=== PATIENT | female | born 1935 | race Caucasian/White ===

== ENCOUNTER → 2017-11-04 | Outpatient (CLI) | payer MEDICARE, OTHER ==
[~2017-11-04] MED LIST: AMI10 PO; AMLO-1 PO; ASCO-201 PO; ATEN-1 PO; CALC500T76 PO; CHOL200023 PO; EZE10 PO; FISH OIL 1,2001 CAP PO
[2017-11-04 09:40] LABS: PLATELET COUNT, AUTOMATED 286 K/uL (150-450)
== END ==
LOC: LAB 09:21
PROVIDERS: ATTEND Nurse Practitioner Family
DX: I10 Essential (primary) hypertension (principal); Z95.1 Presence of aortocoronary bypass graft; E87.5 Hyperkalemia; E16.2 Hypoglycemia, unspecified; G47.33 Obstructive sleep apnea (adult) (pediatric); R53.83 Other fatigue; E78.00 Pure hypercholesterolemia, unspecified; E55.9 Vitamin D deficiency, unspecified
CPT/HCPCS: 36415; 82040; 82247; 82306; 82310; 82374; 82435; 82465; 82565; 82947; 83036; 83718; 84075; 84132; 84155; 84295; 84443; 84450; 84460; 84478; 84520; 85025

== ENCOUNTER → 2017-11-11 | Outpatient (CLI) | payer MEDICARE, OTHER ==
--- NOTE | 2017-11-11 13:02 | RADIOLOGY IMAGING REPORT ---
FACILITY: [facility] PATIENT NAME: Bibiana Bhat : 1935 MR: [id number] V: [id number] EXAM DATE: ORDERING PHYSICIAN: AUSTIN GEORGES TECHNOLOGIST: Location: [facility] [place] Patient: Bibiana Bhat : 1935 Visit/Account:[id number] Date of Sevice: 11/11/[address] scan without contrast COMPARISONS: None ADDITIONAL PERTINENT HISTORY: Short-term memory loss and dizziness TECHNIQUE: Multiple axial images were obtained from the skull base to the vertex without IV contrast . One of the following dose optimization techniques was utilized in the performance of this exam: Aut omated exposure control; adjustment of the mA and/or kV according to the patient's size; or use of an iterative reconstruction technique. Specific details can be referenced in the facility's radiology CT exam operational policy. FINDINGS: Midline shift: Negative Ventricles: Negative Brain parenchyma: Patchy hypoattenuation within the periventricular and subcortical white matter, no nspecific but likely representing small vessel ischemic change on a chronic basis. Extra-axial spaces: Mild cerebral atrophy. Calcified extra-axial lesion projecting over the lateral aspect of the right cerebellar hemisphere measuring 2.1 cm compatible with a calcified meningioma. No significant mass effect related to this finding. Intracranial vasculature: Cavernous internal carotid artery calcifications. Otherwise negative Osseous structures: Negative Paranasal sinuses and mastoid air cells: Negative Surrounding soft tissues and orbits: Negative IMPRESSION: 1. Calcified meningioma projecting over the lateral aspect of the right cerebellar hemisphere. 2. Age related changes as described above. 3. No evidence of acute intracranial pathology. Report Dictated By: Ervin Landaverde MD at 11/11/2017 12:54 PM Report E-Signed By: Ervin Landaverde MD at 11/11/2017 12:57 PM WSN:[id number]
== END ==
LOC: CT 12:00
PROVIDERS: ATTEND Nurse Practitioner Family
DX: R41.3 Other amnesia (principal)
CPT/HCPCS: 70450

== ENCOUNTER → 2018-01-29 | Outpatient (CLI) | payer MEDICARE, OTHER ==
[2018-01-29 08:42] LABS: PLATELET COUNT, AUTOMATED 303 K/uL (150-450)
== END ==
LOC: LAB 08:03
PROVIDERS: ATTEND Nurse Practitioner Family
DX: I10 Essential (primary) hypertension (principal); I70.90 Unspecified atherosclerosis; Z95.1 Presence of aortocoronary bypass graft; E87.5 Hyperkalemia; E16.2 Hypoglycemia, unspecified; M81.0 Age-related osteoporosis without current pathological fracture; M62.81 Muscle weakness (generalized); R53.83 Other fatigue; R53.81 Other malaise; Z86.79 Personal history of other diseases of the circulatory system; R73.03 Prediabetes; E78.00 Pure hypercholesterolemia, unspecified; R41.3 Other amnesia; E55.9 Vitamin D deficiency, unspecified
CPT/HCPCS: 36415; 82040; 82247; 82310; 82374; 82435; 82465; 82565; 82607; 82947; 83036; 83718; 84075; 84132; 84155; 84295; 84443; 84450; 84460; 84478; 84520; 85025

== ENCOUNTER → 2018-09-02 | Outpatient (CLI) | payer MEDICARE, OTHER ==
[~2018-09-02] MED LIST changes: +ASPI81TA94 PO; +CYCL1DRO6 OP; +DONE5TAB29 PO; +FLAX1CAP7; +ISOS40TA PO; +LISI5TAB25 PO; +inhaler
[2018-09-02 11:05] LABS: PLATELET COUNT, AUTOMATED 331 K/uL (150-450)
--- NOTE | 2018-09-02 11:13 | RADIOLOGY IMAGING REPORT ---
FACILITY: [facility] [place] PATIENT NAME: Bibiana Bhat : 1935 MR: [id number] V: [id number] EXAM DATE: ORDERING PHYSICIAN: AUSTIN GEORGES TECHNOLOGIST: Location: [facility] [place] Patient: Bibiana Bhat : 1935 Visit/Account:[id number] Date of Sevice: 09/02/2018 MRI left shoulder without contrast Indication: Shoulder pain and limited range of motion after lifting injury. Comparison: None available Technique: Multiplanar, multisequence MRI examination is performed of the left shoulder without contr ast. FINDINGS: There is a type 1 acromion. There are moderate changes of acromioclavicular joint osteoarthritis. The glenohumeral joint is normally aligned. There are underlying changes of osteoarthritis which are mod erate in severity. There is osteophyte production and central glenoid chondrosis. An intermediate siz ed glenohumeral joint effusion is present. Degenerative superior glenoid labral tearing is suspected in the region of the biceps insertion. No para labral cyst is seen. There is thickening and increased T2 signal within and surrounding the anterior and inferior glenohumeral joint capsule. This could be related to a capsular sprain but can also be seen with adhesive capsulitis and frozen shoulder syndr ome. Clinical correlation is necessary. Examination of the rotator cuff demonstrates mild supraspinatus insertional tendinopathy with low-gra de undersurface tearing at the anterior and mid insertion. Minimal infraspinatus insertional tendinop athy is seen anteriorly. No evidence for focal tear. The subscapularis insertion is intact with mild insertional tendinopathy at the superior insertion. The long head biceps tendon is seen within the bi cipital groove and the insertion on the glenoid is maintained. There is a small amount of fluid within the subacromial-subdeltoid bursa. Rotator cuff musculature is normal in bulk. No atrophy seen. IMPRESSION: 1. Mild left shoulder supraspinatus insertional tendinopathy with low grade undersurface insertional tearing. No full-thickness cuff tear. 2. Subscapularis insertional tendinopathy most pronounced at the superior insertion. 3. Thickening of the anterior and inferior joint capsule with pericapsular edema. This could reflect a capsular sprain or adhesive capsulitis/frozen shoulder syndrome. 4. Acromioclavicular joint and glenohumeral joint osteoarthritis. 5. Trace subacromial-subdeltoid bursitis. Report Dictated By: Shailesh Alanis at 09/02/2018 10:34 AM Report E-Signed By: Shailesh Alanis at 09/02/2018 10:42 AM WSN:[id number]
== END ==
LOC: MRI 00:59
PROVIDERS: ATTEND Nurse Practitioner Family
DX: S43.492A Other sprain of left shoulder joint, initial encounter (principal); G30.9 Alzheimer's disease, unspecified; I10 Essential (primary) hypertension; R53.83 Other fatigue; I70.91 Generalized atherosclerosis; Z95.1 Presence of aortocoronary bypass graft; E87.5 Hyperkalemia; E16.2 Hypoglycemia, unspecified; Z86.79 Personal history of other diseases of the circulatory system; R73.03 Prediabetes; E78.00 Pure hypercholesterolemia, unspecified; R41.3 Other amnesia; E55.9 Vitamin D deficiency, unspecified
CPT/HCPCS: 36415; 82040; 82247; 82310; 82374; 82435; 82465; 82565; 82607; 82947; 83036; 83718; 84075; 84132; 84155; 84295; 84443; 84450; 84460; 84478; 84520; 85025

== ENCOUNTER 2018-09-04 09:03 | Emergency (ER) | payer MEDICARE, OTHER ==
[~2018-09-04 09:03] MED LIST changes: -ASPI81TA94 PO; -CYCL1DRO6 OP; -DONE5TAB29 PO; -FLAX1CAP7; -ISOS40TA PO; -LISI5TAB25 PO; -inhaler
--- NOTE | 2018-09-04 09:06 | ER Report ---
History and Physical Time Seen By MD: 09:06 HPI/DEAN CHIEF COMPLAINT: Fast heart rate HISTORY OF PRESENT ILLNESS: Patient is an 83-year-old female with past medical history significant for coronary artery bypass graft 3 approximately 20 years a go. She states that last evening she was awakened by a racing heart rate along with feeling shaky and anxious. She denied actual chest pain or pressure but stated that the symptoms have now resolved and she is back to her normal baseline. She denies having history of prior episodes of tachycardia. She is followed by for cardiology and sees Dr. Weaver as a primary care provider. She denies any recent fevers or chills or coughs. She denies currently chest pain, shortness of breath, abdominal pain. REVIEW OF SYSTEMS: Constitutional: No fever, no chills. Eyes: No discharge. ENT: No sore throat. Cardiovascular: palpitations Respiratory: No cough, no shortness of breath. Gastrointestinal: No abdominal pain, no vomiting. Genitourinary: No hematuria. Musculoskeletal: No back pain. Skin: No rashes. Neurological: No headache. Allergies: Coded Allergies: morphine (Verified Allergy, Severe, ANAPHYLAXIS, 09/04/18) Home Meds Reported Medications [inhaler] No Conflict Check 09/04/18 Flaxseed/Evening Prim/Bilberry (Retaine Flax Softgel) 1 Each Capsule 09/04/18 Donepezil Hcl (DONEPEZIL HCL) 5 Mg Tablet, 5 MG PO QDAY, TAB 09/04/18 Lisinopril (LISINOPRIL) 5 Mg Tablet, 2.5 MG PO QDAY, TAB 09/04/18 Isosorbide Dinitrate (ISORDIL) 40 Mg Tablet, 30 MG PO 09/04/18 Cyclosporine (RESTASIS) 1 Each Droperette, 1 EACH OP 09/04/18 Aspirin (ASPIRIN) 81 Mg Tab.chew, 81 MG PO QDAY, TAB.CHEW 09/04/18 Ezetimibe (Zetia) 10 Mg Tab, 10 MG PO QHS, 0 Refills 09/21/10 Fish Oil/Hegins-3 Fatty Acids (Fish Oil 1,200 Mg Softgel) 1 Cap Capsule, 1 CAP PO DAILY, 0 Refills 09/21/10 Discontinued Reported Medications Calcium (Calcium) 500 Mg Tablet, 1800 MG PO DAILY, 0 Refills 09/21/10 Ascorbate Calcium (Vitamin C) 500 Mg Tablet, 1500 MG PO, 0 Refills 09/21/10 Atenolol (Atenolol) 50 Mg Tablet, 50 MG PO QDAY, 0 Refills 09/21/10 Amlodipine Besylate (Amlodipine Besylate) 5 Mg Tablet, 5 MG PO QAM, 0 Refills 09/21/10 Amitriptyline Hcl (Elavil) 10 Mg Tab, 10 MG PO QHS, 0 Refills 09/21/10 Past Medical/Surgical History Past medical history for hypertension, history of reactive airways disease, history of osteopenia, history of CABG 3 vessel approximately 20 years ago. No history of prior [place]. Hx Smoking: No Hx Substance Use Disorder: No Hx Alcohol Use: Yes (rarely) Constitutional Vital Sign - Last 24 Hours 09/04/18 09/04/18 09/04/18 09/04/18 09:07 09:30 09:45 10:00 Temp 97.8 Pulse 84 Resp 20 B/P (MAP) 149/80 149/78 (101) 142/128 (133) 156/82 (106) Pulse Ox 92 92 92 O2 Delivery Room Air 09/04/18 09/04/18 09/04/18 09/04/18 10:15 10:27 10:30 10:45 Pulse ??? Resp 10 B/P (MAP) 159/97 (117) 160/84 (109) 156/77 (103) Pulse Ox 96 O2 Flow Rate 2.0 09/04/18 09/04/18 09/04/18 09/04/18 11:00 11:15 11:30 11:45 Pulse ? Resp 14 B/P (MAP) 164/77 (106) 164/85 (111) 175/98 (123) 170/88 (115) Pulse Ox 97 98 Physical Exam General/Constitutional: Patient is awake, alert, nontoxic and in no acute respiratory distress. Head: Normocephalic and atraumatic. Eyes: Conjunctival clear, Pupils are equal and reactive to light. Sclera are clear and anicteric. Ears:External canals are clear. Tympanic membranes are clear with normal landmarks and light reflex. Nares: No rhinorrhea or bleeding. Turbinates are pink and moist. Oropharyngeal: Mucous membranes are moist. There is no pharyngeal erythema or exudate. Neck: Supple, no adenopathy. Cardiovascular: Heart is regular rate and rhythm without audible murmurs, rubs or gallops. Pulmonary: Lungs are clear to auscultation bilaterally. There are no wheezes, rales, or rhonchi. Chest rise is symmetrical Abdomen: Soft, nontender, no guarding or peritoneal signs. Extremities: No gross deformities, No peripheral cyanosis. Able to move all 4 extremities. Neuro: Alert and oriented X3, Skin: No rashes, skin is warm dry and well perfused. Medical Decision Making Data Points Result Diagram: 09/04/18 0910 09/04/18 0910 Laboratory Hematology Test 09/04/18 09:10 Red Blood Count 5.28 M/uL (4.17-5.56) Mean Corpuscular Volume 87.9 fL (80.0-96.0) Mean Corpuscular Hemoglobin 29.5 pg (26.0-33.0) Mean Corpuscular Hemoglobin Concent 33.6 g/dL (32.0-36.0) Red Cell Distribution Width 14.0 % (11.5-14.5) Mean Platelet Volume 6.7 fL (7.2-11.1) Neutrophils (%) (Auto) 56.3 % (39.4-72.5) Lymphocytes (%) (Auto) 33.6 % (17.6-49.6) Monocytes (%) (Auto) 8.4 % (4.1-12.4) Eosinophils (%) (Auto) 1.5 % (0.4-6.7) Basophils (%) (Auto) 0.2 % (0.3-1.4) Nucleated RBC Relative Count (auto) 0.1 /100WBC Neutrophils # (Auto) 4.7 K/uL (2.0-7.4) Lymphocytes # (Auto) 2.8 K/uL (1.3-3.6) Monocytes # (Auto) 0.7 K/uL (0.3-1.0) Eosinophils # (Auto) 0.1 K/uL (0.0-0.5) Basophils # (Auto) 0.0 K/uL (0.0-0.1) Nucleated RBC Absolute Count (auto) 0.01 K/uL Sodium Level 139 mmol/L (137-145) Potassium Level 4.4 mmol/L (3.5-5.0) Chloride Level 106 mmol/L (98-107) Carbon Dioxide Level 22 mmol/L (22-31) Blood Urea Nitrogen 16 mg/dl (7-18) Creatinine 1.00 mg/dl (0.52-1.04) Glomerular Filtration Rate Calc 53.0 Random Glucose 116 mg/dl (75-110) Calcium Level 9.6 mg/dl (8.4-10.2) Total Bilirubin 0.6 mg/dl (0.2-1.3) Aspartate Amino Transf (AST/SGOT) 27 U/L (0-35) Alanine Aminotransferase (ALT/SGPT) 23 U/L (0-56) Alkaline Phosphatase 89 U/L (0-126) Troponin I < 0.012 ng/ml Total Protein 7.5 g/dl (6.3-8.2) Albumin 4.3 g/dl (3.5-5.0) Chemistry Test 09/04/18 09:10 White Blood Count 8.3 k/uL (4.5-11.0) Red Blood Count 5.28 M/uL (4.17-5.56) Hemoglobin 15.6 g/dL (12.0-16.0) Hematocrit 46.4 % (34.0-47.0) Mean Corpuscular Volume 87.9 fL (80.0-96.0) Mean Corpuscular Hemoglobin 29.5 pg (26.0-33.0) Mean Corpuscular Hemoglobin Concent 33.6 g/dL (32.0-36.0) Red Cell Distribution Width 14.0 % (11.5-14.5) Platelet Count 344 K/uL (150-450) Mean Platelet Volume 6.7 fL (7.2-11.1) Neutrophils (%) (Auto) 56.3 % (39.4-72.5) Lymphocytes (%) (Auto) 33.6 % (17.6-49.6) Monocytes (%) (Auto) 8.4 % (4.1-12.4) Eosinophils (%) (Auto) 1.5 % (0.4-6.7) Basophils (%) (Auto) 0.2 % (0.3-1.4) Nucleated RBC Relative Count (auto) 0.1 /100WBC Neutrophils # (Auto) 4.7 K/uL (2.0-7.4) Lymphocytes # (Auto) 2.8 K/uL (1.3-3.6) Monocytes # (Auto) 0.7 K/uL (0.3-1.0) Eosinophils # (Auto) 0.1 K/uL (0.0-0.5) Basophils # (Auto) 0.0 K/uL (0.0-0.1) Nucleated RBC Absolute Count (auto) 0.01 K/uL Glomerular Filtration Rate Calc 53.0 Calcium Level 9.6 mg/dl (8.4-10.2) Total Bilirubin 0.6 mg/dl (0.2-1.3) Aspartate Amino Transf (AST/SGOT) 27 U/L (0-35) Alanine Aminotransferase (ALT/SGPT) 23 U/L (0-56) Alkaline Phosphatase 89 U/L (0-126) Troponin I < 0.012 ng/ml Total Protein 7.5 g/dl (6.3-8.2) Albumin 4.3 g/dl (3.5-5.0) EKG/Imaging EKG Interpretation EKG shows sinus rhythm with a ventricular rate of [address] segment or T-wave abnormalities are noted. Monitor Interpretation: Normal Sinus Rhythm Imaging FACILITY: [facility] [place] PATIENT NAME: Bibiana Bhat : 1935 MR: [id number] V: [id number] EXAM DATE: ORDERING PHYSICIAN: ZHEN ROJAS TECHNOLOGIST: Location: [facility] Patient: Bibiana Bhat : 1935 Visit/Account:[id number] Date of Sevice: 09/04/2018 Exam type: CHEST SINGLE AP History: Chest pain, rapid heart rate, previous smoker Comparison: 2015. Findings: There is mild linear scarring in the medial left lung base. There is no evidence of acute appearing infiltrates, pleural effusions or pulmonary edema. No evidence of a pneumothorax or pneumomediastinum. The cardiac silhouette appears normal. There are sternotomy sutures present. IMPRESSION: 1. No acute cardiopulmonary process is seen Report Dictated By: Stephany Truong MD at 09/04/2018 10:52 AM Report E-Signed By: Stephany Truong MD at 09/04/2018 10:53 AM ESSIEN:[email or web address] ED Course/Re-evaluation Clinical Indication for ER IV: IV Access ED Course 09/04/2018 9:43:35 am At this time will be cardiac workup we will monitor the patient on the quality assurance monitor body in the emergency department. Disposition pending workup. 09/04/2018 11:25:17 am workup in the emergency department is unremarkable patient status is unchanged. We'll schedule her for a 48-hour Holter monitor if available with results going to Dr. Lanette Weaver. Decision to Disposition Date: Sep 04, 2018 Decision to Disposition Time: 11:41 Depart Departure Latest Vital Signs Vital Signs Date Time Temp Pulse Resp B/P (MAP) Pulse Ox O2 Delivery O2 Flow Rate FiO2 09/04/18 11:45 170/88 (115) 09/04/18 11:30 ??? 98 09/04/18 11:00 14 09/04/18 10:27 2.0 09/04/18 09:07 97.8 Room Air Impression: Primary Impression: Palpitations Condition: Improved Disposition: HOME OR SELF-CARE Referrals: LANETTE WEAVER (PCP) 2 Weeks for results of holter monitor Patient Instructions: Palpitations (ED) Additional Instructions: Return to the emergency department if you again experience a racing heart rate or chest pain or palpitations. Continue all your outpatient medications as directed. ZHEN ROJAS MD Sep 04, 2018 09:06
[2018-09-04] MEDS ORDERED: LISI5TAB25 PO (09:23)
[2018-09-04] MEDS ORDERED: CYCL1DRO6 OP (09:23)
[2018-09-04] MEDS ORDERED: ASPI81TA94 PO (09:23)
[2018-09-04] MEDS ORDERED: DONE5TAB29 PO (09:23)
[2018-09-04] MEDS ORDERED: FLAX1CAP7 (09:23)
[2018-09-04] MEDS ORDERED: ISOS40TA PO (09:23)
[2018-09-04] MEDS ORDERED: inhaler (09:25)
[2018-09-04 10:30] LABS: PLATELET COUNT, AUTOMATED 344 K/uL (150-450)
--- NOTE | 2018-09-04 10:59 | RADIOLOGY IMAGING REPORT ---
FACILITY: [facility] [place] PATIENT NAME: Bibiana Bhat : 1935 MR: [id number] V: [id number] EXAM DATE: ORDERING PHYSICIAN: ZHEN ROJAS TECHNOLOGIST: Location: [facility] Patient: Bibiana Bhat : 1935 Visit/Account:[id number] Date of Sevice: 09/04/2018 Exam type: CHEST SINGLE AP History: Chest pain, rapid heart rate, previous smoker Comparison: Arch 2015. Findings: There is mild linear scarring in the medial left lung base. There is no evidence of acute appearing infiltrates, pleural effusions or pulmonary edema. No evidence of a pneumothorax or pneumomediastinu m. The cardiac silhouette appears normal. There are sternotomy sutures present. IMPRESSION: 1. No acute cardiopulmonary process is seen Report Dictated By: Stephany Truong MD at 09/04/2018 10:52 AM Report E-Signed By: Stephany Truong MD at 09/04/2018 10:53 AM WSN:[id number]
[2018-09-04 11:45] VITALS: BP 170/88
--- NOTE | 2018-09-04 12:32 | EKG ---
[place] [facility] [place] NAME: ELTON CONNELL : [id number] MR: [id number] V: [id number] EXAM DATE: ORDERING PHYSICIAN: ZHEN ROJAS TECHNOLOGIST: LIGIA Test Reason : RAPID HR Blood Pressure : / mmHG Vent. Rate : 062 BPM Atrial Rate : 062 BPM P-R Int : 160 ms QRS Dur : 084 ms QT Int : 408 ms P-R-T Axes : 086 094 075 degrees QTc Int : 414 ms Normal sinus rhythm Normal ECG When compared with ECG of 30-OCT-2012 14:46, Septal ST-T wave abnormalities have normalized Confirmed by SHANE DE LA CRUZ ([id number]) on 09/04/2018 9:09:23 PM Referred By: CRYSTAL Confirmed By:SHANE DE LA CRUZ
--- NOTE | 2018-09-07 07:00 | RT HOLTER TEST ---
FACILITY: [facility] PATIENT NAME: ELTON CONNELL : [id number] MR: [id number] V: [id number] EXAM DATE: ORDERING PHYSICIAN: ZHEN ROJAS TECHNOLOGIST: Gregoria Young-up date: 2018-09-04 12:10:00 Duration: 24:00:00 Test Indications: RAPID HEART RATE Medications: Zetia Lisonopril Ristasis Retaine Donezapril HCL [id number] QRS complexes 11 Ventricular ectopics which represent <1 % of total QRS comp. 201 Supraventricular ectopics which represent <1 % of total QRS comp. * Paced QRS complexes which represent % of total QRS comp. VENTRICULAR ECTOPY 11 Isolated 0 Bigeminal Cycles 0 Couplets 0 Runs 0 Beats in Runs * Beats LONGEST at * BPM at :: -- * Beats FASTEST at * BPM at :: -- SUPRAVENTRICULAR ECTOPY 106 Isolated 9 Couplets 11 Runs 77 Beats in Runs 21 Beats LONGEST at 149 BPM at 09:11:29 2018-09-05 5 Beats FASTEST at 206 BPM at 08:07:21 2018-09-05 HEART RATES 46 MIN at 21:40:41 2018-09-04 73 AVG 186 MAX at 08:07:22 2018-09-05 LONGEST RR 1.544 secs at 21:40:34 2018-09-04 S-T LEVELS Channel 1 -12.800 mm MIN at 12:10:00 2018-09-0412.800 mm MAX at 12:10:00 2018-09-04 Channel 2 -12.800 mm MIN at 12:10:00 2018-09-0412.800 mm MAX at 12:10:00 2018-09-04 Channel 3 -12.800 mm MIN at 12:10:00 2018-09-04 -12.800 mm MAX at 12:10:00 2018-09-04 Confirmed by KT DE LA PAZ ([id number]) on 09/07/2018 7:00:10 AM Referred By: Overread By: KT DE LA PAZ
== END 2018-09-04 12:15 | disposition home or self-care (01) ==
LOC: ER 09:13
DX: R00.2 Palpitations (principal)
CPT/HCPCS: 71045; 82040; 82247; 82310; 82374; 82435; 82565; 82947; 84075; 84132; 84155; 84295; 84450; 84460; 84484; 84520; 85025; 93005; 93225; 93226; 99284

== ENCOUNTER → 2019-01-09 | Outpatient (CLI) | payer MEDICARE, OTHER ==
[~2019-01-09] MED LIST changes: +ASPI81TA94 PO; +CYCL1DRO6 OP; +DONE5TAB29 PO; +FLAX1CAP7; +GADOBENATE 529MG/1ML 15ML VIAL IVP ONE; +ISOS40TA PO; +LISI5TAB25 PO; +inhaler
--- NOTE | 2019-01-09 15:58 | RADIOLOGY IMAGING REPORT ---
FAC[place] [facility] [place] PATIENT NAME: Bibiana Bhat : 1935 MR: [id number] V: [id number] EXAM DATE: ORDERING PHYSICIAN: JOVANNI RAMIREZ TECHNOLOGIST: Location: [facility] [place] Patient: Bibiana Bhat : 1935 Visit/Account:[id number] Date of Sevice: 01/09/2019 EXAMINATION: MRI brain without IV contrast MRI brain with IV contrast HISTORY: Memory loss, abnormal CT the brain COMPARISON: None. TECHNIQUE: Multi-planar, multi-sequence brain MRI was performed before and after IV gadolinium. CONTRAST: 12 mL of IV MultiHance FINDINGS: Brain volume: Mild brain atrophy, not unusual for age. Sagittal midline structures: Normal. Ventricles: Stable. Acute ischemic changes: None. Hemorrhage: None. Masses/edema: Enhancing mass along the right posterior fossa with mild mass effect on the right cere bellar hemisphere measures 2.2 x 1.9 x 2.2 cm. No edema. Brain parenchyma: Hemispheric T2 bright white matter changes, not unusual for age. Vessels: Normal. Extra-axial: None. Calvarium/scalp: Negative. Skull base: Negative. Visualized sinuses/orbits: Negative. Visualized upper neck: Negative. IMPRESSION: 1. Presumed calcified meningioma along the right posterior fossa is unchanged. 2. No new or focal abnormalities to explain patient's symptoms. Senescent changes. Report Dictated By: DIALLO ROJAS at 01/09/2019 3:37 PM Report E-Signed By: DIALLO ROJAS at 01/09/2019 3:50 PM WSN:[id number]
== END ==
LOC: MRI 00:36
PROVIDERS: ATTEND Physician Assistant
DX: R41.3 Other amnesia (principal); R90.89 Other abnormal findings on diagnostic imaging of central nervous system
CPT/HCPCS: 70553; A9577